=== PATIENT | male | born 1955 | race Caucasian/White ===

== ENCOUNTER 2018-09-13 22:29 | Emergency (ER) | payer OTHER, SELFPAY ==
[2018-09-13 22:31] VITALS: BP 189/109; PULSE 97; RESP 18; TEMP 36.6; O2SAT 93; BMI 34.3
--- NOTE | 2018-09-13 22:45 | RAD_ITS ---
STUDY: X-RAY - LEFT HUMERUS REASON FOR EXAM: Male, 63 years old. Pain left humerus TECHNIQUE: 2 view(s) of the humerus. COMPARISON: None. FINDINGS: Normal visualized humerus. There is no demonstrated fracture or osseous destructive process. There is no demonstrated soft tissue abnormality. RAD/Humerus min 2 Views IMPRESSION: Normal x-ray examination of the humerus. Electronically Signed: Tu Chow MD at 23:44 EST , Service support ,
--- NOTE | 2018-09-13 22:45 | EKG12_ITS ---
Test Reason : LEFT ARM PAIN Blood Pressure : / mmHG Vent. Rate : 094 BPM Atrial Rate : 094 BPM P-R Int : 222 ms QRS Dur : 104 ms QT Int : 390 ms P-R-T Axes : 047 -12 003 degrees QTc Int : 487 ms Sinus rhythm with 1st degree A-V block with occasional Premature ventricular complexes Prolonged QT Abnormal ECG Confirmed by CHICHI STOKES, ALBARO ([id number]), business editor PINO FLORES ([id number] on 09/16/2018 1:39:22 PM Referred By: MILLIE Confirmed By:ALBARO CADET MD
[2018-09-13 22:48] VITALS: O2SAT 94
[2018-09-13] MEDS: Acetaminophen 500 MG Tablet 1000 MG PO (22:51)
[2018-09-13 23:05] LABS: Absolute Lymphocyte Count 1.45 X10^3/ul (0.83-4.51); Absolute Neutrophil Count 5.7 X10^3/uL (2.0-7.7); Basophil# 0.05 X10^3/uL; Basophil% 0.6 % (0-1); Eosinophil# 0.15 X10^3/uL; Eosinophils% 1.8 % (0-5); Hematocrit 47.2 % (40-54); Hemoglobin 15.8 g/dl (13.0-16.5); Lymphocyte # 1.45 X10^3/ul (4.0); Lymphocyte % 17.4 % (19-41); Mean Corp Hgb Conc 33.5 g/gl (32-36); Mean Corpuscular Hgb 31.2 pg (27.0-32.0); Mean Corpuscular Volume 93.3 fL (80-94); Monocyte# 0.91 X10^3/uL; Monocyte% 10.9 % (0-10); Neutrophil # 5.71 X10^3/uL (2.7-7.7); Neutrophil % 68.3 % (47-70); POSITIVE COUNT NO; POSITIVE DIFFERENTIAL NO; POSITIVE MORPHOLOGY NO; Platelet Count 274 K/mm3 (150-450); RBC Distribution Width CV 13.4 % (11.6-14.6); RBC Distribution Width SD 44.3 fl (35.1-43.9); Red Blood Count 5.06 M/mm3 (4.6-6.2); White Blood Count 8.4 K/mm3 (4.4-11.0)
[2018-09-13 23:23] LABS: Anion Gap 10 (5-15); BUN 24 mg/dL (7-18); BUN/Creat Ratio 24.2 RATIO (10-20); Calcium,Total 8.7 mg/dL (8.5-10.1); Chloride 104 mmol/L (98-107); Creatinine, Serum 0.99 mg/dL (0.70-1.30); EST Glomerular Filtration Rate 81 mL/min (>60); Est Glom Filt Rate - Afr Amer 98 mL/min (>60); Estimated Creatinine Clearance 80.29 ml/min; Glucose 253 mg/dL (74-106); Potassium 3.9 mmol/L (3.5-5.1); Sodium Level 137 mmol/L (136-145)
[2018-09-13 23:29] VITALS: BP 181/87; PULSE 95; RESP 18; O2SAT 95
--- NOTE | 2018-09-14 00:09 | ED.DCSUM_ITS ---
- ER Visit Summary Date of Service: 09/14/18 Chief Complaint: [] History of Present Illness: The patient is a 63 M [] Physical Examination: [] Test Results: [] Emergency Department Course and Treatment: [] Treatment Plan: [] Disposition: [] Impression: [] This note was generated with [employer] dictation software. It may contain incorrect words, spelling, and punctuation that were not noted in review of the chart prior to signing ED Disposition - Plan for ED Patient: Chief Complaint: Upper Extremity Injury Instructions: ED Shoulder Pain [facility] Prescriptions: Hydrocodone Bitart/Apap 5-325 [[place] 5MG-325MG] 1 tablet PO Q4H PRN PRN 2 Days #10 tablet PRN Reason: Pain Referrals: James West MD [Primary Care Provider] - 1 Week if not improving
[2018-09-14] MEDS: Morphine 4 MG/ML Syringe IV (00:12)
[2018-09-14 00:46] VITALS: BP 164/104; PULSE 97; RESP 20; O2SAT 95
--- NOTE | 2018-09-14 00:47 | ED.RN ---
REVIEWED D/C INSTRUCTIONS, FOLLOW UP CARE, PRESCRIPTIONS, AND S/S THAT WOULD WARRANT A RETURN TO THE ED WITH PT. PT VERBALIZED AN UNDERSTANDING AND DENIES FURTHER QUESTIONS FOR THIS RN. PT SKIN P/W/D, RESP EVEN AND UNLABORED, PT A&O X 3, NO DISTRESS NOTED. PT AMBULATED OUT OF ED, GAIT STEADY.
--- NOTE | 2018-09-14 03:02 | ED.DCSUM_ITS ---
- ER Visit Summary Date of Service: 09/14/18 Chief Complaint: Left shoulder pain History of Present Illness: The patient is a [address] West. He is a poor informant. He reports that he has left shoulder pain that began today. It is an intermittent sharp pain that is 10 out of 10 at worst an 8 out of 10 currently. Is worsened by nothing including movement or exertion. Is also relieved by nothing. He denies any associated nausea, vomiting, diaphoresis, or shortness of breath. Patient denies any chest pain. No chest pain or change in dyspnea exertion in the past month. Patient is left-hand dominant. He denies any recent trauma. No fall, MVA, or change in activity. He is on Xarelto. Review of systems: General: No fever, chills, cold sweats. Cardiovascular: No chest pain, palpitations. Respiratory: No cough, shortness of breath, dyspnea on exertion. Gastrointestinal: No abdominal pain, nausea, vomiting, diarrhea, melena, or hematochezia. Genitourinary: No dysuria, frequency, hematuria. Skin: No rash. Neuro: No headache, numbness, weakness. Physical Examination: Vitals: Stable. Afebrile. General: Well-nourished and well-developed. Head: Normocephalic atraumatic. Neck: Supple, no lymphadenopathy. No JVD. Nontender. Cardiovascular: Regular rate and rhythm. No murmurs. Respiratory: No respiratory distress. Clear to auscultation bilaterally. Abdominal: Soft, nontender, nondistended, normal bowel sounds. No guarding, rebound, or peritoneal signs. Back: Nontender. Extremities: Nontender, no edema. Large contusion over the lateral surface of the middle third of his left humerus laterally. This is nontender. He does have decreased range of motion of his shoulder due to pain. This is much more active than passive. There is no overlying erythema or warmth to suggest a septic joint. Neurovascularly intact distally. 2+ radial pulse. Skin: Normal color, no rash. Neurologic: Alert and oriented ?3. Cranial nerves II through XII are intact. Normal strength and sensation. Psych: Normal affect. Test Results: EKG is sinus with a first-degree AV block at a rate of 94. It is unchanged from October 2015. CBC is marked for lymphocytes of 17 and monocytes of 11. Chem-7 is more for glucose 253 and BUN of 24. Blood alcohol level is 34. Troponin is negative. Left humerus x-ray shows no acute disease. Emergency Department Course and Treatment: Patient was treated with Tylenol and then morphine IV once his alcohol level returned. Treatment Plan: This time the patient does not have a fracture. There is certainly a contusion in the area where he is complaining of pain. I did discuss the patient possibility of an injury to his rotator cuff. He will be discharged with [place]. He refused a sling. Instructed to follow-up with his primary care physician in 1 week if not improving. Return to the emergency department for any worsening symptoms. Disposition: To home in improved and stable condition. Impression: 1. Left shoulder pain, acute. 2. Coagulopathy on Xarelto. This note was generated with [employer] dictation software. It may contain incorrect words, spelling, and punctuation that were not noted in review of the chart prior to signing ED Disposition - Plan for ED Patient: Disposition: Home or Assisted Living Chief Complaint: Upper Extremity Injury Instructions: ED Shoulder Pain [facility] Prescriptions: Hydrocodone Bitart/Apap 5-325 [[place] 5MG-325MG] 1 tablet PO Q4H PRN PRN 2 Days #10 tablet PRN Reason: Pain Referrals: James West MD [Primary Care Provider] - 1 Week if not improving
== END 2018-09-14 00:48 | disposition home or self-care (01) ==
LOC: ED 23:24
PROVIDERS: Emergency Provider Emergency Medicine; Family Provider Family Medicine; PCP Family Medicine
DX: M25.512 Pain in left shoulder (principal); I10 Essential (primary) hypertension; Z79.02 Long term (current) use of antithrombotics/antiplatelets; Z79.82 Long term (current) use of aspirin; Z79.899 Other long term (current) drug therapy
CPT/HCPCS: 73060; 80048; 80320; 84484; 85025; 93005; 96374; 99285; A4216; G0480